=== PATIENT | female | born 1995 | race Asian ===

== ENCOUNTER 2019-09-27 19:35 | Emergency (ER) | payer OTHER ==
[~2019-09-27] VITALS: Ht 167.6 cm; Wt 109.8 kg
[2019-09-27 20:11] VITALS: BP 123/65; TEMP 97.7
== END 2019-09-27 20:25 | disposition home or self-care (01) ==
LOC: ED 19:35
DX: R10.33 Periumbilical pain (principal); Z3A.37 37 weeks gestation of pregnancy; Z53.29 Procedure and treatment not carried out because of patient's decision for other reasons
CPT/HCPCS: 99284